=== PATIENT | male | born 1980 | race Caucasian/White ===

== ENCOUNTER 2021-06-16 09:36 | Emergency (ER) | payer OTHER, SELFPAY ==
[2021-06-16 09:37] VITALS: BP 152/101; PULSE 124; RESP 18; TEMP 36.9; O2SAT 95; BMI 28.3
--- NOTE | 2021-06-16 10:00 | EX.ED.DYSGE1 ---
HPI History of Present Illness Chief Complaint: General Illness Informant: patient Narrative Narrative: Patient presents with complaints related to Covid. He started with some cough back about 12 days ago. He was diagnosed 1 week ago on Wednesday. He had some cough but it has improved. He is not short of breath. He is not having chest pain. He has had some diarrhea but now the stool is getting more formed. He does not think he has had nausea but states he cannot eat because his mouth is just too dry. He also complains of trouble sleeping. He is just very concerned when the symptoms will go away. I asked him what is #1 reason for coming in was he states it is hard to get sleep at night because he is worried about this and the symptoms are keeping him up. He was having myalgias but those are improving. Nothing is specifically making his symptoms better or worse but they do seem to improve over time. He has no history of any vaccinations. He does have a history of high cholesterol takes co-Q10 and pravastatin. These are not new. [facility] Medical History (Updated 06/16/21 @ 12:[address] Munir Hernandez MD) Depression High cholesterol Home Medications ibuprofen 400 mg PO PRN 07/28/13 [History Last Taken Unknown] oxycodone-acetaminophen 1 - 2 tab PO Q4H PRN PRN #30 tab 08/03/13 [Rx Last Taken Unknown] Allergy/AdvReac Type Severity Reaction Status Date / Time No Known Allergies Allergy Verified 07/28/13 10:58 Social History Smoking Status: Former smoker ROS ROS ED Constitutional Constitutional ED: Reports fever(s) and subjective; Denies weight loss Eyes Eyes: Denies blurry vision ENT ENT ED: Reports other Details: Dry mouth ; Denies ear pain, rhinorrhea or sore throat Cardiovascular Cardiovascular: Denies chest pain or palpitations Respiratory/Chest Respiratory/Chest: Reports cough; Denies dyspnea or sputum Gastrointestinal Gastrointestinal: Denies abdominal pain, constipation, diarrhea, melena or vomiting Genitourinary Genitourinary ED: Denies dysuria or hematuria Musculoskeletal Musculoskeletal: Reports myalgias Integumentary Denies rash Neurologic Neurologic: Denies headache(s) or weakness Endocrine Endocrinology: Reports other Details: Patient states he is drinking water but he is trying to drink more. His urine is relatively clear. ; Denies polydipsia or polyuria Allergic/Immunologic Allergic/Immunologic ED: Denies mouth swelling or urticaria EXAM Physical Exam Const Vital Signs: 06/16/21 09:37 06/16/21 10:18 Temperature 98.4 F Temperature Source Temporal Pulse Rate 124 H 111 H Respiratory Rate 18 Respiratory Effort Normal Non-Labored Respiratory Pattern Normal Blood Pressure 152/101 H Blood Pressure Mean 118 Pulse Ox 95 96 Oxygen Delivery Method Room Air Room Air Positive well nourished and well developed; Negative for unkempt General Appearance ED: well developed and NAD; Negative for unkempt, cyanotic or diaphoretic HEENT Reports dry mucous membranes Negative for trauma Mouth ED: Yes dry mucous membranes Mouth: dry mucous membranes Eyes General Eye ED: Negative for pale conjunctiva or scleral icterus Neck no lymphadenopathy, supple and no JVD Chest Wall inspection of chest normal Resp normal respiratory effort and clear to auscultation bilaterally Resp Narrative: Is actually sound quite good. There is no pain at all with deep breath. Effort and Inspection: Negative for pain with movement Auscultation: Negative for rales, rhonchi or wheezes Cardio regular rate, regular rhythm and no murmurs Rate: other Other Details: Heart rate is only about 85 time. GI normal to inspection, nondistended, normoactive bowel sounds, non-tender and non-distended Palpation: soft Back/Spine no CVA tenderness Extremity normal to inspection Extremity Narrative: No edema cord swelling or asymmetry. General Extremety ED: Negative for edema or tenderness General Extremity: Negative for edema Neuro oriented x3 Sensorium / Orientation: alert Psych Appearance: Negative for unkempt Mood & Affect: anxious Skin no rashes or lesions noted and no wounds MDM MDM MDM Narrative Medical decision making narrative: His x-ray does show signs consistent with mild Covid. However his coughing is improving. His saturations are normal. His overall clinical course sounds like it is improving. His biggest complaint is sleeping at night. I recommend trying Benadryl or melatonin. Blood work was done. Sodium was minimally low but should self correct. Glucose was a little bit elevated at 188. This might be causing some dry mouth and increased urination but does not require acute treatment. He will follow up with his private physician for recheck within the week. Lab Data Attestation: I reviewed the patient's lab results. Labs: Laboratory Results - last 24 hr 06/16/21 10:05 Sodium 133 L Potassium 3.6 Chloride 99 Carbon Dioxide 28.0 Anion Gap 6 BUN 10 Creatinine 1.21 Estim Creat Clear Calc 76.63 Est GFR (MDRD) Af Amer 86 Est GFR (MDRD) Non-Af 71 BUN/Creatinine Ratio 8.3 L Glucose 188 H Calcium 8.6 Total Bilirubin 0.30 AST 67 H ALT 66 H Alkaline Phosphatase 68 Total Protein 7.6 Albumin 3.5 Globulin 4.1 Albumin/Globulin Ratio 0.9 Radiography Diagnostic Testing: Clinical Impression(s) from Imaging Studies Chest X-Ray 06/16/21 10:15 IMPRESSION: Mild degree of bilateral pulmonary infiltrates worse in the left hemithorax. Electronically Signed: Aureliano Valencia MD at 10:38 EDT , Service support , Discharge Plan Triage Chief Complaint: General Illness ED Provider: Munir Hernandez Dx/Rx/DC Orders Clinical Impression: COVID, Insomnia Instructions: Caring for Someone Who Has COVID-19 Prescriptions: No Action ibuprofen 200 MG tablet 400 mg PO PRN (Reason: Pain) RF: 0 oxycodone-acetaminophen 1 TABLET tablet 1 - 2 tab PO Q4H PRN PRN (Reason: Pain) Qty: 30 RF: 0 Primary Care Provider: Raghav Max Referrals: Raghav Max, PA [Primary Care Provider] - 3-5 Days if not improving Activity Restrictions/Additional Instructions: Follow-up with your doctor within the next week for recheck of blood sugar. Disposition Disposition: Home, Self Care
[2021-06-16] MEDS: 0.9% Normal Saline 1,000 ML 1000 ML IV (10:09)
[2021-06-16] MEDS: Ondansetron 4 MG/2 ML Vial IV (10:09)
--- NOTE | 2021-06-16 10:15 | RAD_ITS ---
STUDY: X-RAY CHEST REASON FOR EXAM: Male, 41 years old. covid cough TECHNIQUE: Single AP portable view of the chest. COMPARISON: None. FINDINGS: Mild pulmonary infiltrates are seen in the lateral aspect of the left upper and left lower lobes as well as in the right lung base. There is no demonstrated pleural abnormality. Normal size heart. Normal mediastinum and fiona. Normal visualized pulmonary arteries. Normal visualized aortic arch and descending thoracic aorta. Normal visualized thoracic spine. Normal visualized ribs, clavicles, and shoulders. There is no demonstrated abnormality of the visualized soft tissue structures of the upper abdomen. RAD/Chest 1 View (Portable) IMPRESSION: Mild degree of bilateral pulmonary infiltrates worse in the left hemithorax. Electronically Signed: Aureliano Valencia MD at 10:38 EDT , Service support ,
[2021-06-16 10:18] VITALS: PULSE 111; O2SAT 96
[2021-06-16 10:27] LABS: ALB/GLOB Ratio 0.9 RATIO (0.9-2.4); AST(SGOT) 67 U/L (15-37); Alanine Aminotransfer ALT/SGPT 66 U/L (16-61); Albumin, Serum 3.5 g/dL (3.2-5.0); Alkaline Phosphatase 68 U/L (45-117); Anion Gap 6 (5-15); BUN 10 mg/dL (7-18); BUN/Creat Ratio 8.3 RATIO (10-20); Calcium,Total 8.6 mg/dL (8.5-10.1); Chloride 99 mmol/L (98-107); Creatinine, Serum 1.21 mg/dL (0.70-1.30); EST Glomerular Filtration Rate 71 mL/min (>60); Est Glom Filt Rate - Afr Amer 86 mL/min (>60); Estimated Creatinine Clearance 76.63 ml/min; Globulin 4.1 g/dL (2.2-4.2); Glucose 188 mg/dL (74-106); Potassium 3.6 mmol/L (3.5-5.1); Protein, Total 7.6 g/dL (6.4-8.2); Sodium Level 133 mmol/L (136-145)
[2021-06-16 12:29] VITALS: O2SAT 96
== END 2021-06-16 12:29 | disposition home or self-care (01) ==
PROVIDERS: Emergency Provider Emergency Medicine; PCP Physician Assistant
DX: U07.1 COVID-19 (principal); G47.00 Insomnia, unspecified; E78.00 Pure hypercholesterolemia, unspecified; Z87.891 Personal history of nicotine dependence
CPT/HCPCS: 71045; 80048; 80053; 96361; 96374; 99283; J7030; J2405